=== PATIENT | male | born 1985 | race African-American/Black ===

== ENCOUNTER 2020-08-09 10:01 | Emergency (ER) | payer OTHER ==
[2020-08-09 10:11] VITALS: BP 138/95; PULSE 70; TEMP 98.2; BMI 30.2
[2020-08-09] MEDS ORDERED: KETOROLAC TROMETHAMINE 30 MG/1 ML VIAL IM ONE (10:38)
[2020-08-09] MEDS ORDERED: KETOROLAC TROMETHAMINE 30 MG/1 ML VIAL ONE (10:56)
[2020-08-09 11:02] LABS: INR 1.05 (0.83-1.09); PROTHROMBIN TIME (PATIENT) 12.9 SEC (9.7-13.0)
[2020-08-09 11:05] LABS: ACTIVATED PTT 29.6 SECONDS (25.2-36.5)
== END 2020-08-09 11:07 | disposition home or self-care (01) ==
LOC: JERFT 10:01
PROC: 3E0233Z Introduction of Anti-inflammatory into Muscle, Percutaneous Approach (ICD-10-PCS; principal; 2020-08-09)
DX: A69.23 Arthritis due to Lyme disease (principal); M79.10 Myalgia, unspecified site
CPT/HCPCS: 36415; 85610; 85651; 85730; 86140; 99284-25; C9803; U0003; U0005